=== PATIENT | female | born 1945 | race Caucasian/White ===

== ENCOUNTER → 2016-11-26 | Outpatient (CLI) | payer OTHER, BC ==
[2016-11-26 13:37] LABS: ALT/SGPT 18 U/L (12-78); BLOOD UREA NITROGEN 19 mg/dl (7-18); BUN/CREATININE RATIO 26.6 (10-20); CALCIUM 8.7 mg/dl (8.5-10.1); CARBON DIOXIDE 24 mmol/L (21-32); CHLORIDE 109 mmol/L (98-107); CHOLESTEROL 172 mg/dl (0-200); CREATININE 0.73 mg/dl (0.60-1.20); GLUCOSE 105 mg/dl (70-99); POTASSIUM 4.1 mmol/L (3.5-5.1); SODIUM 142 mmol/L (136-145); TRIGLYCERIDES 92 mg/dl (0-150); VERY LOW DENSITY LIPOPROT CALC 18 mg/dl
[2016-11-26 13:39] LABS: BASO % 0.6 %; BASO ABS # 0.03 K/uL (0-0.2); COMPLETE YES; EOS % 2.5 %; HEMATOCRIT 34.9 % (37-47); IG% 0.2 %; LYMPH % 25.2 %; LYMPH ABS # 1.22 K/uL (1.2-3.4); MEAN CELL VOLUME 81.5 fL (80-100); MEAN CORPUSCULAR HEMOGLOBIN 26.2 pg (25-34); MEAN CORPUSCULAR HGB CONC 32.1 g/dl (32-36); MEAN PLATELET VOLUME 9.1 fL (7.4-10.4); MONO % 8.3 %; NEUT % 63.2 %; PLATELET COUNT 364 K/uL (130-400); RED BLOOD COUNT 4.28 M/uL (4.2-5.4); WHITE BLOOD COUNT 4.84 K/uL (4.8-10.8)
[2016-11-26 13:40] LABS: ALB/GLOB RATIO 0.8 (0.9-2); ALKALINE PHOSPHATASE 102 U/L (45-117); AST/SGOT 11 U/L (15-37); CHOLESTEROL/HDL RATIO 3.2; HDL CHOLESTEROL 54 mg/dl; LDL CHOLESTEROL CALCULATED 100 mg/dl
== END | disposition home or self-care (01) ==
LOC: C.LABMFLN 10:51
PROVIDERS: ATTEND Family Medicine
DX: D50.9 Iron deficiency anemia, unspecified (principal); E78.5 Hyperlipidemia, unspecified

== ENCOUNTER → 2016-12-03 | Outpatient (CLI) | payer OTHER, BC ==
--- NOTE | 2016-12-04 12:36 | MAMMOGRAPHY REPORT ---
BILATERAL DIGITAL SCREENING MAMMOGRAM TOMOSYNTHESIS WITH CAD: 12/03/2016 CLINICAL HISTORY: Asymptomatic. Personal history of breast cancer. TECHNIQUE: Breast tomosynthesis in addition to standard 2D mammography was performed. Current study was also evaluated with a Computer Aided Detection (CAD) system. COMPARISON: Comparison is made to exams dated: 11/22/2015 mammogram, 10/23/2014 mammogram, 3 mammogram, 09/17/2009 mammogram, 09/30/2010 mammogram, and 10/03/2011 mammogram - [facility]. BREAST COMPOSITION: There are scattered areas of fibroglandular density in both breasts. FINDINGS: There is asymmetry of the size of the breasts and mild diffuse left breast skin thickening , likely from previous treatment. There is expected architectural distortion in the lower outer pos terior left breast, with surgical clips in place, in the area of prior lumpectomy. There are stable microcalcifications within the left breast near the surgical site that appears similar dating back to at least 2009, therefore likely benign. No new suspicious mass, architectural distortion or clus ter of microcalcifications is seen. IMPRESSION: ACR BI-RADS CATEGORY 1: NEGATIVE There is no mammographic evidence of malignancy. A 1 year screening mammogram is recommended. The p atient will receive written notification of the results. Approximately 10% of breast cancers are not detected with mammography. A negative mammographic repor t should not delay biopsy if a clinically suggestive mass is present. Millie Colin M.D. ay/:12/03/2016 21:36:30 [employer]: Erika NOEL(R)(M), [facility] letter sent: Normal 1/2 BI-RADS Code: ACR BI-RADS Category 1: Negative
== END | disposition home or self-care (01) ==
LOC: C.MAMM 09:31
PROVIDERS: ATTEND Internal Medicine Hematology
DX: Z12.31 Encounter for screening mammogram for malignant neoplasm of breast (principal)

== ENCOUNTER → 2017-02-09 | Outpatient (CLI) | payer OTHER, BC | END | disposition home or self-care (01) | LOC: C.LABMFLN 07:54 | PROVIDERS: ATTEND Family Medicine | DX: R31.9 Hematuria, unspecified (principal) ==

== ENCOUNTER → 2017-11-17 | Outpatient (CLI) | payer OTHER, BC ==
[2017-11-17 12:21] LABS: BASO % 1.1 %; BASO ABS # 0.04 K/uL (0-0.2); EOS % 5.1 %; EOS ABS # 0.19 K/uL (0-0.5); HEMATOCRIT 38.9 % (37-47); HEMOGLOBIN 12.4 g/dL (12.0-16.0); IG# 0.01 K/uL (0.00-0.02); LYMPH % 35.4 %; LYMPH ABS # 1.33 K/uL (1.2-3.4); MEAN CELL VOLUME 85.9 fL (80-100); MEAN CORPUSCULAR HEMOGLOBIN 27.4 pg (25-34); MEAN CORPUSCULAR HGB CONC 31.9 g/dl (32-36); MEAN PLATELET VOLUME 9.4 fL (7.4-10.4); MONO % 9.3 %; MONO ABS # 0.35 K/uL (0.11-0.59); NEUT % 48.8 %; NEUT ABS # 1.84 K/uL (1.4-6.5); PLATELET COUNT 256 K/uL (130-400); RED CELL DISTRIBUTION WIDTH CV 15.6 % (11.5-14.5); RED CELL DISTRIBUTION WIDTH SD 49.5 fL (36.4-46.3); WHITE BLOOD COUNT 3.76 K/uL (4.8-10.8)
[2017-11-17 13:20] LABS: ALBUMIN 3.6 gm/dl (3.4-5.0); ALT/SGPT 23 U/L (12-78); AST/SGOT 14 U/L (15-37); BLOOD UREA NITROGEN 16 mg/dl (7-18); CALCIUM 8.6 mg/dl (8.5-10.1); CARBON DIOXIDE 25 mmol/L (21-32); CREATININE 0.77 mg/dl (0.60-1.20); GLUCOSE 103 mg/dl (70-99); POTASSIUM 3.7 mmol/L (3.5-5.1); SODIUM 140 mmol/L (136-145)
[2017-11-17 13:25] LABS: ALKALINE PHOSPHATASE 98 U/L (45-117); CHOLESTEROL 183 mg/dl (0-200); LDL CHOLESTEROL CALCULATED 107 mg/dl; TOTAL PROTEIN 7.4 gm/dl (6.4-8.2)
== END | disposition home or self-care (01) ==
LOC: C.LABMFLN 08:20
PROVIDERS: ATTEND Family Medicine
DX: D50.9 Iron deficiency anemia, unspecified (principal); E78.5 Hyperlipidemia, unspecified

== ENCOUNTER → 2018-02-24 | Outpatient (CLI) | payer OTHER, BC ==
--- NOTE | 2018-02-24 15:45 | MAMMOGRAPHY REPORT ---
BILATERAL DIGITAL SCREENING MAMMOGRAM TOMOSYNTHESIS WITH CAD: 02/24/2018 CLINICAL HISTORY: Asymptomatic. Personal history of breast cancer. TECHNIQUE: Breast tomosynthesis in addition to standard 2D mammography was performed. Current study was also evaluated with a Computer Aided Detection (CAD) system. COMPARISON: Comparison is made to exams dated: 12/03/2016 mammogram, 11/22/2015 mammogram, 10/23/2014 m ammogram, 10/14/2013 mammogram, 10/08/2012 mammogram, and 09/30/2010 mammogram - [facility]. BREAST COMPOSITION: There are scattered areas of fibroglandular density in both breasts. FINDINGS: A linear scar marker overlies the left breast. There is expected architectural distortion, local asymmetry and surgical clips in the retroareolar, posterior left breast, at the site of prior lumpectomy. There are a few benign rim calcifications in the left breast. No new suspicious mass, a rchitectural distortion or cluster of microcalcifications is seen bilaterally. IMPRESSION: ACR BI-RADS CATEGORY 1: NEGATIVE There is no mammographic evidence of malignancy. A 1 year screening mammogram is recommended. The pa tient will receive written notification of the results. Approximately 10% of breast cancers are not detected with mammography. A negative mammographic report should not delay biopsy if a clinically suggestive mass is present. Millie Colin M.D. ay/:02/24/2018 13:21:22 Emergency Medcl Emt: Tatum NOEL(Linda)(Yodit), [facility] letter sent: Normal 1/2 BI-RADS Code: ACR BI-RADS Category 1: Negative
== END | disposition home or self-care (01) ==
LOC: C.MAMM 12:47
PROVIDERS: ATTEND Internal Medicine Hematology
DX: Z12.31 Encounter for screening mammogram for malignant neoplasm of breast (principal); Z85.3 Personal history of malignant neoplasm of breast